=== PATIENT | male | born 1965 | race Caucasian/White ===

== ENCOUNTER 2020-01-12 11:56 | Emergency (ER) | payer OTHER, SELFPAY ==
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
[2020-01-12 11:59] VITALS: BP 143/85; PULSE 72; RESP 16; TEMP 36.5; O2SAT 98
--- NOTE | 2020-01-12 12:00 | DI.RAD_ITS ---
EXAM: XR HAND RT COMPLETE CLINICAL HISTORY: ? FB dorsum of hand TECHNIQUE: 2D digital imaging was performed. COMPARISON: No exams were available for comparison FINDINGS: Soft tissue swelling the dorsum of the metacarpal region. No fracture or radiopaque foreign body is seen. No abnormal gas collection is identified. IMPRESSION: Soft tissue swelling. No visible foreign body.
[2020-01-12] MEDS: Cephalexin 500 MG CAP PO (12:56)
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
== END 2020-01-12 13:00 | disposition home or self-care (01) ==
LOC: ER 13:04
PROVIDERS: Emergency Provider Physician Assistant; PCP Family Medicine
DX: S61.431A Puncture wound without foreign body of right hand, initial encounter (principal); L03.113 Cellulitis of right upper limb; W45.8XXA Other foreign body or object entering through skin, initial encounter
CPT/HCPCS: 36416; 82962; 99253; 99283; 73130

== ENCOUNTER 2022-10-03 09:15 | Emergency (ER) | payer OTHER, SELFPAY ==
[2022-10-03 09:22] VITALS: BP 127/83; PULSE 74; RESP 16; TEMP 36.7; O2SAT 98
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
[2022-10-03] MEDS: Ibuprofen 600 MG TAB PO (09:48)
[2022-10-03 11:21] VITALS: BP 143/94; PULSE 72; RESP 18; O2SAT 98
== END 2022-10-03 11:25 | disposition home or self-care (01) ==
PROVIDERS: Emergency Provider Nurse Practitioner Family; PCP Family Medicine
DX: S20.219A Contusion of unspecified front wall of thorax, initial encounter (principal); V89.2XXA Person injured in unspecified motor-vehicle accident, traffic, initial encounter
CPT/HCPCS: 99283; 71046; 71120; 99282

== ENCOUNTER 2022-10-25 13:31 | Outpatient (REF) | payer OTHER, SELFPAY ==
[2022-10-25 15:57] LABS: Calculated LDL 135 mg/dL (<100); Cholesterol 208 mg/dL (<200); HDL Cholesterol 56 mg/dL (40-60); Triglyceride 88 mg/dL (<150)
[2022-10-26 17:20] LABS: ALT 18 U/L (16-63); AST 23 U/L (15-37); Albumin 4.3 g/dL (3.4-5.0); Alkaline Phosphatase 77 U/L (46-116); Anion Gap 10.9 mmol/L (3-11); BUN 17 mg/dL (7-18); Bilirubin, Total 0.8 mg/dL (0.2-1.0); CO2 25.1 mmol/L (21.0-32.0); Calcium 9.8 mg/dL (8.5-10.1); Chloride 105 mmol/L (98-107); Estimated GFR 88.88 (mL/min/1.73m2); Glucose 97 mg/dL (74-106); Potassium 4.4 mmol/L (3.5-5.1); Sodium 141 mmol/L (136-145); Total Protein 7.7 g/dL (6.4-8.2)
[2022-10-27 09:36] LABS: HIV-1/2 Ag & Ab Screen Negative (Negative)
[2022-10-29 09:52] LABS: Hepatitis C Ab w Rflx HCV PCR Negative (Negative)
== END 2022-10-25 13:32 | disposition home or self-care (01) ==
LOC: NCHCN 13:31
PROVIDERS: PCP Family Medicine; Visit Provider Family Medicine
DX: E78.5 Hyperlipidemia, unspecified (principal); Z00.00 Encounter for general adult medical examination without abnormal findings; Z11.59 Encounter for screening for other viral diseases; Z11.4 Encounter for screening for human immunodeficiency virus [HIV]
CPT/HCPCS: 80053; 80061; 86803; 87389

== ENCOUNTER 2023-06-28 09:59 | Day surgery (SDC) | payer OTHER, SELFPAY ==
--- NOTE | 2023-06-27 20:54 | PDOC.DSDIS_ITS ---
Date of service: 06/28/23 Time of Service: 12:15 Discharge Plan Disposition Patient Disposition: Home Condition: Good Discharge Details Reason For Visit: colon scope Attending Provider: Yamilet Martinez Primary Care Provider: Archana Cohn Home Meds and New Rx's Prescriptions: Continued ascorbic acid (vitamin C) [Vitamin C] 500 MG capsule, extended release 500 mg PO DAILY Patient Comments: patient states he has not taken this in a month omega-3 fatty acids-fish oil 1 EACH capsule 1 ea PO DAILY Patient Comments: roughly 2 weeks ago/ december sometime ginseng 100 MG capsule 100 mg PO DAILY Patient Comments: patient states he has not taken this in several months vitamin E (dl, acetate) 100 UNIT capsule 100 unit PO DAILY naltrexone 50 mg tablet 50 mg PO DAILY cholecalciferol (vitamin D3) 10 mcg (400 unit) capsule 10 mcg PO DAILY cyanocobalamin (vitamin B-12) [Vitamin B-12] 500 mcg tablet 500 mcg PO DAILY milk thistle 150 mg capsule 150 mg PO DAILY Rx Instructions: give with meal/snack cephalexin [Keflex] 500 mg capsule 500 mg PO QID Qty: 27 0RF cyanocobalamin (vitamin B-12) [Vitamin B-12] 500 MCG tablet 500 mcg PO DAILY acetaminophen [Pain Reliever ES(acetaminophn)] 500 MG tablet 1,000 mg PO PRN PRN Patient Comments: patient states he takes this occasionally, took 2 500mg pills to equal 1000mg Discontinued bisacodyl [Dulcolax (bisacodyl)] 5 mg tablet,delayed release (DR/EC) 5 mg PO ONCE Qty: 4 0RF Rx Instructions: Take per colonoscopy instructions provided by ordering providers office polyethylene glycol 3350 17 gram/dose powder 17 g PO ONCE Qty: 238 0RF Rx Instructions: Take per colonoscopy instructions provided by ordering providers office Discharge Instructions Additional Instructions: DSU Colonoscopy Post- Op Instructions Instructions for Everyone who is given Anesthesia: For your safety, please do the following for the next twenty-four (24) hours: *Do Not operate a motor vehicle (car, truck, motorcycle, etc.) *Do Not drink alcoholic beverages or use any recreational drugs for the first 24 hours or while taking pain medications. The medications in your body may have a reaction that can be dangerous. *Do Not make any important decisions or sign any important papers. Findings: normal Follow up: Repeat in 10 yrs time 1. No lifting over 20 pounds or strenuous activity for the first 24 hours after your procedure. After 24 hours there are no restrictions on your activity but you may feel fatigued for a few days. 2. After you arrive home you may have a light meal and return to your normal diet as you can tolerate it without feeling sick to your stomach. 3. You may have a bloated, gaseous feeling in your belly (abdomen) after a colonoscopy. Passing gas and belching will help. Walking or lying down on your left side with your knees flexed may relieve the discomfort. Call the office at [phone] (Office) or [phone] (Hospital) right away if you notice any of the following: a.Vomiting of blood or ?coffee ground stools?. b.Rectal bleeding 1Tbsp, blood clots or continuous bleeding. c.Severe belly (abdominal) pain. d.A hard distended belly (abdomen) and an inability to pass gas. 4. Please don?t expect to have a normal BM (bowel movement) for 2-3 days after your procedure. 5. If there are questions regarding the findings of your procedure, please contact your doctor 6. If you are unable to contact your doctor with a problem, contact the hospital at [phone]. 7. Continue all your regular medications unless directed otherwise. I understand the above instructions and have no questions. Signature of Patient or Adult Escort Name of Responsible Adult Escort Signature of Nurse Date/Time Activity:: see above Diet:: see above Discharge Orders Discharge Orders: Discharge Order (Routine); Ordered 06/28/23 Ordered By: Yamilet Martinez DS: Diagnosis Discharge Diagnosis (1) Tubular adenoma of colon: Status: Acute Asessment and Plan: The patient is seen and examined after their colonoscopy.? The patient has been able to pass gas.? They are not having abdominal pain.? They have been able to tolerate liquids and a snack.? They do not have any nausea or vomiting.? They are not having any chest pain or shortness of breath.??? They are not having any rectal bleeding. Their vital signs have been stable-see nursing notes. We discussed findings during their colonoscopy, and any biopsies that were done/polyps that were removed. The patient will be sent a letter with any biopsy results, and when to repeat the colonoscopy.-see discharge instructions. Patient was given explicit instructions to follow-up regarding colonoscopy-refer to discharge instructions.? We reviewed resumption of medications. Patient verbalized understanding and discharged in stable and satisfactory condition- See nursing notes.
--- NOTE | 2023-06-27 20:54 | W.COLOREPORT ---
Date of service: 06/28/23 Time of Service: 12:17 Colonoscopy Report Date of procedure: 06/28/23 Pre-op diagnosis general: adenomatous polyps Post-op diagnosis procedure note: other (Normal) Surgeon: Yamilet Martinez Anesthesia Type: General:No Airway Estimated blood loss (mL): 0 Pathology: none sent Complications: None Disposition: same day Prep: Miralax/Dulcolax Retraction Time: 8 Procedure Description: After informed consent was obtained the patient was taken to the procedure room and placed in a left decubitous position. Monitors were applied and a time out was done. The patients name, date of , procedure, allergies to medications and metal in their body was reviewed. The patient was then sedated. Once sedated and comfortable a rectal exam was done. External exam was normal. Internal exam revealed a normal sphincter tone and no palpable masses. The prostate normal. The scope was then introduced and retrofelexed. No internal hemorrhoids were identified. The scope was then advanced to the cecum without difficulty. The TI and appendiceal orifice were identified. The prep was BBPS 3 in all segments for a total of 9. The scope was then slowly retracted over 8 minutes back into the rectum. There are no polyps, AVMs, or diverticula visualized today. The Mucosa is pink and healthy with a normal vascular pattern. The scope was removed and the patient was woken up and taken back to Same day surgery in stable condition. The patient tolerated the procedure well and there were no immediate complications. Follow up: The patient should follow up in 10 years unless they develop changes in bowel habits or other new gastrointestinal complaints.
[2023-06-28 10:24] VITALS: BP 119/88; PULSE 62; RESP 16; TEMP 36.5; O2SAT 100
--- NOTE | 2023-06-28 10:52 | W.ANESPRE ---
General Info Date of Service Date Performed: 06/28/23 Height: 5 ft 1.5 in Weight: 83.9 kg Body Mass Index (BMI): 34.4 Surgical Procedure: Operation Date: 06/28/23 10:35 Proposed Procedure Side Surgeon richy Martinez, DO Meds Allergies and Home Medications Allergies Allergy/AdvReac Type Severity Reaction Status Date / Time No Known Allergies Allergy Unverified 06/27/23 15:01 Home Medication Medication Instructions Recorded Vitamin C 500 mg capsule,extended 500 mg PO DAILY 01/13/18 release (ascorbic acid (vitamin C)) ginseng 100 mg capsule 100 mg PO DAILY 01/13/18 omega-3 fatty acids-fish oil 300 1 ea PO DAILY 01/13/18 mg-1,000 mg capsule vitamin E (dl, acetate) 45 mg (100 100 unit PO DAILY 01/13/18 unit) capsule cyanocobalamin (vitamin B-12) 500 500 mcg PO DAILY 01/16/18 mcg tablet (Vitamin B-12) acetaminophen 500 mg tablet (Pain 1,000 mg PO PRN PRN 01/20/18 Reliever Extra Strength (acetaminophen)) cephalexin 500 mg capsule (Keflex) 500 mg PO QID #27 caps 01/12/20 cholecalciferol (vitamin D3) 10 10 mcg PO DAILY 03/22/23 mcg (400 unit) capsule cyanocobalamin (vitamin B-12) 500 500 mcg PO DAILY 03/22/23 mcg tablet (Vitamin B-12) milk thistle 150 mg capsule 150 mg PO DAILY 03/22/23 naltrexone 50 mg tablet 50 mg PO DAILY 03/22/23 Current Visit Medications: Current Medications Generic Name Dose Route Start Last Admin Trade Name Freq PRN Reason Stop Dose Admin Hyoscyamine Sulfate 0.125 mg 06/28/23 04:06 Hyoscyamine 0.125 Mg Sl/Oral/Chew SL 07/28/23 04:05 DIRECTED PRN Ringer's Solution 1,000 mls @ 80 mls/hr 06/28/23 06:00 IV 07/27/23 23:59 INFUSION ROBER IV Miscellaneous Supplies 1 each 06/28/23 06:00 Iv Access IV 07/27/23 23:59 DIRECTED ROBER Ondansetron HCl 4 mg 06/28/23 04:06 Ondansetron 4 Mg/2 Ml Vial IVP 07/28/23 04:05 Q4H PRN PRN Nausea / Vomiting Sodium Chloride 0 ml 06/28/23 06:00 Normal Saline Flush 10 Ml Syr IV 07/27/23 23:59 PRN PRN Sodium Chloride 0 ml 06/28/23 06:00 Normal Saline 10 Ml Vial IJ 07/27/23 23:59 DIRECTED PRN Sterile Water 0 ml 06/28/23 06:00 Water,Injection,Sterile 10 Ml Vial IJ 07/27/23 23:59 DIRECTED PRN PFSH Active Problems Active Problems: Problem Status Onset Code Tubular adenoma of colon 01/20/18 D12.6 Alcohol abuse, 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 Medical History Medical History 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 pt states he fell from a ladder on 04/22/12 and woke up 3 weeks later in a hospital.[facility] Medical History Comments:: Pt states occasional edible use Surgical History Surgical History Colonoscopy - MAC (01/20/18) Tobacco Smoking/Tobacco Use Status: Never Alcohol Alcohol Intake: former Substance Use Substance use: Occasionally Substance use type: marijuana Vital Signs and Lab Results Vital Signs Most Recent Vital Signs in EMR: Most Recent Vital Signs Temp Pulse Resp BP Pulse Ox 36.5 C 62 16 119/88 100 06/28/23 10:24 06/28/23 10:24 06/28/23 10:24 06/28/23 10:24 06/28/23 10:24 Lab Results Blood Type / Crossmatch: No Data to Display Complete Blood Count: No Data to Display Complete Metabolic Panel: No Data to Display Liver Function Panel: No Data to Display Coagulation Panel: No Data to Display Cardiac Panel: No Data to Display Arterial Blood Gas: No Data to Display Venous Blood Gas: No Data to Display Pancreas Panel: No Data to Display Thyroid Panel: No Data to Display Infectious Disease: No Data to Display Blood Cultures: No Data to Display Toxicology Panel: No Data to Display Anesthesia Assessment and Plan Anesthesia History Personal History: No History of Anesthesia Complications Family History: No Family History of Anesthesia Complications Exercise Tolerance Exercise Tolerance: Metabolic Equivalents>4 Pertinent Negatives Pertinent Negatives: No Symptoms of GERD Cardiac & Pulmonary Exam Cardiac Exam: Normal S1/S2 Heart Sounds Pulmonary Exam: Clear Bilateral Breath Sounds Implantable Cardiac Device Does patient have a Pacemaker or an ICD?: No Airway Exam Known Difficult Airway: No Mallampati Class: 2 Mouth Opening: Normal (> 3cm) Thyromental Distance: Greater than 3 cm Neck Range of Motion: Full ROM Neck Circumference: Normal Teeth Condition: Normal Dentition ASA Classification ASA Score: ASA 1 Emergency Case?: No NPO Status NPO Status: NPO Clears >2 hours, Solids >8 hours Anesthesia Plan Resuscitation Status: Full Code Anesthesia Technique: General Anesthesia Airway Planned: Natural Airway Monitors Used: Standard Monitors
[2023-06-28 10:53] VITALS: BMI 34.4
[2023-06-28] MEDS: Lactated Ringers 1,000 ML 80 ML IV (11:00)
[2023-06-28 12:11] VITALS: BP 131/75; PULSE 74; RESP 16; TEMP 36.4; O2SAT 99
--- NOTE | 2023-06-28 12:24 | W.ANESPOSTOP ---
Postoperative Evaluation Date, Time and Location Date Performed: 06/28/23 Time Performed: 12:24 Patient Location: Day Surgery Unit Vital Signs Most Recent Imported Vital Signs: Most Recent Vital Signs Temp Pulse Resp BP Pulse Ox 36.4 C L 74 16 131/75 99 06/28/23 12:11 06/28/23 12:11 06/28/23 12:11 06/28/23 12:11 06/28/23 12:11 Pain Score Most Recent Pain Score: Most Recent Pain Score Pain Level 0 06/28/23 12:11 Assessment Mental Status: Awake (Alert & Oriented to Patient Baseline) Airway and Respiratory Function: Patent airway with normal (patient baseline) respiratory exam Cardiovascular Function: Hemodynamically Stable Hydration Status: Adequately Hydrated Nausea & Vomiting: No Nausea or Vomiting Pain: Pt. Denies Any Pain Peripheral Nerve Block: Patient did not receive a nerve block
[2023-06-28 12:45] VITALS: BP 129/93; PULSE 60; RESP 18; TEMP 36.2; O2SAT 100
== END 2023-06-28 13:56 | disposition home or self-care (01) ==
LOC: SUR 09:59
PROVIDERS: PCP Family Medicine; Visit Provider Surgery
PROC: 0DJD8ZZ Inspection of Lower Intestinal Tract, Via Natural or Artificial Opening Endoscopic (ICD-10-PCS; CPT 45378; principal; 2023-06-28 10:30)
DX: Z12.11 Encounter for screening for malignant neoplasm of colon (principal)
CPT/HCPCS: 45378; J2001

== ENCOUNTER 2025-01-29 20:16 | Outpatient (REF) | payer BC, SELFPAY ==
[2025-01-29 15:44] LABS: HCT 46.2 % (40.0-50.0); MCH 29.3 pg (27.0-33.0); MCHC 32.5 % (32.0-36.0); MCV 90 fL (80-95); MPV 8.7 fL (8.0-11.0); Platelet Count 316 10^3/uL (130-400); RBC 5.12 10^6/uL (4.36-5.78); RDW 11.8 % (11.8-14.1); WBC 6.32 10^3/uL (4.4-10.8)
[2025-01-29 16:21] LABS: ALT 25 U/L (16-63); AST 21 U/L (15-37); Albumin 4.1 g/dL (3.4-5.0); Alkaline Phosphatase 61 U/L (46-116); Anion Gap 7.9 mmol/L (3-11); BUN 16 mg/dL (7-18); Bilirubin, Total 0.7 mg/dL (0.2-1.0); CO2 28.1 mmol/L (21.0-32.0); CREATININE 1.2 mg/dL (0.70-1.30); Calcium 9.6 mg/dL (8.5-10.1); Chloride 105 mmol/L (98-107); Estimated GFR 70.53 (mL/min/1.73m2); Glucose 123 mg/dL (74-106); Potassium 4.1 mmol/L (3.5-5.1); Sodium 141 mmol/L (136-145); Total Protein 7.3 g/dL (6.4-8.2)
== END 2025-01-29 20:17 | disposition home or self-care (01) ==
LOC: NCHCN 20:16
PROVIDERS: PCP Family Medicine; Visit Provider Family Medicine
DX: F10.10 Alcohol abuse, uncomplicated (principal)
CPT/HCPCS: 80053; 85027